=== PATIENT | female | born 1960 | race African-American/Black ===

== ENCOUNTER 2017-06-01 06:14 | Day surgery (SDC) | payer OTHER ==
[~2017-06-01] VITALS: Ht 160 cm; Wt 86.4 kg
[~2017-06-01 06:14] MED LIST: ACET500C4 PO; ALBU8.5H8 IH; BUDE10.2 IH; BUPR150SR PO; CHL25 PO; FAMO20 PO; FLUT16H NASAL; GABA-533 PO; HYDR200T4 PO; IPRA4AER IH; LOSA50TA37 PO; MELO-107 PO; MONT10TA21 PO; OMEP20 PO; PROME5L PO; SODIUM CHLORIDE 0.9% 1,000 ML IV ONE
[2017-06-01] MEDS ORDERED: LIDOCAINE HCL 2% 5 ML JELLY TP ONE (06:15)
[2017-06-01] MEDS ORDERED: LIDOCAINE HCL 4% 50 ML SOLUTION TP ONE (06:15)
[2017-06-01] MEDS ORDERED: ALBUTEROL SULFATE 2.5 MG/0.5 ML NEB SOLUTION NEB ONE (06:15)
[2017-06-01] MEDS ORDERED: SODIUM CHLORIDE 0.9% 1,000 ML IV ONE (06:30)
[2017-06-01] MEDS ORDERED: FentaNYL CITRATE-PF 100 MCG/2 ML VIAL ONE (07:45)
[2017-06-01] MEDS ORDERED: MIDAZOLAM HCL 2 MG/2 ML VIAL ONE (07:45)
[2017-06-01] MEDS ORDERED: MethylPREDNISolone SOD SUCC 125 MG/2 ML VIAL IVP ONE (09:00)
[2017-06-01] MEDS ORDERED: MethylPREDNISolone SOD SUCC 125 MG/2 ML VIAL ONE (09:09)
[2017-06-01] MEDS ORDERED: OXYGEN THERAPY IH SCH (20:00)
== END 2017-06-01 10:20 | disposition home or self-care (01) ==
LOC: SURGERY 06:14
PROVIDERS: ATTEND Internal Medicine Critical Care Medicine
DX: J38.4 Edema of larynx (principal); B37.0 Candidal stomatitis; I10 Essential (primary) hypertension; M19.90 Unspecified osteoarthritis, unspecified site; E78.00 Pure hypercholesterolemia, unspecified; J44.9 Chronic obstructive pulmonary disease, unspecified; M06.9 Rheumatoid arthritis, unspecified; F32.9 Major depressive disorder, single episode, unspecified; Z98.890 Other specified postprocedural states; Z90.711 Acquired absence of uterus with remaining cervical stump; Z87.891 Personal history of nicotine dependence
CPT/HCPCS: 31623; 31624; 71010; 87015 ×2; 87070; 87101; 87205; 87220; 88108; 94640; J2250; J2930; J3010; J7030

== ENCOUNTER 2018-10-16 06:08 | Day surgery (SDC) | payer OTHER ==
[~2018-10-16] VITALS: Ht 160 cm; Wt 95.5 kg
[~2018-10-16 06:08] MED LIST changes: -CHL25 PO; -LOSA50TA37 PO; +LOSA50TA64 PO; +PROM6.2522 PO; -PROME5L PO
[2018-10-16] MEDS ORDERED: BENZOCAINE 20% 50 MCG/SPRAY 57 GM TP ONE (06:09)
[2018-10-16] MEDS ORDERED: EPINEPHrine 1:1,000 [1 MG/ML] AMP IM ONE (06:09)
[2018-10-16] MEDS ORDERED: ALBUTEROL SULFATE 2.5 MG/0.5 ML NEB SOLUTION NEB ONE (06:09)
[2018-10-16] MEDS ORDERED: LIDOCAINE 4% 50 ML SOLUTION TP ONE (06:09)
[2018-10-16] MEDS ORDERED: LIDOCAINE 2% 30 ML JELLY TP ONE (06:09)
[2018-10-16] MEDS ORDERED: SODIUM CHLORIDE 0.9% 1,000 ML IV ONE (06:30)
[2018-10-16] MEDS ORDERED: FentaNYL CITRATE-PF 100 MCG/2 ML VIAL ONE (07:36)
[2018-10-16] MEDS ORDERED: MIDAZOLAM HCL 2 MG/2 ML VIAL ONE (07:36)
[2018-10-16] MEDS ORDERED: MethylPREDNISolone SOD SUCC 125 MG/2 ML VIAL ONE (08:51)
[2018-10-16] MEDS ORDERED: MethylPREDNISolone SOD SUCC 125 MG/2 ML VIAL IVP ONE (09:00)
[2018-10-16] MEDS ORDERED: OXYGEN THERAPY IH SCH (20:00)
== END 2018-10-16 10:25 | disposition home or self-care (01) ==
LOC: SURGERY 06:08
PROVIDERS: ATTEND Internal Medicine Critical Care Medicine
DX: J38.4 Edema of larynx (principal); B37.0 Candidal stomatitis; I10 Essential (primary) hypertension; F17.210 Nicotine dependence, cigarettes, uncomplicated; F32.9 Major depressive disorder, single episode, unspecified; M19.90 Unspecified osteoarthritis, unspecified site; J43.9 Emphysema, unspecified; Z98.890 Other specified postprocedural states
CPT/HCPCS: 31623; 31624; 71045; 87015; 87070; 87101; 87205; 87206; 87220; 88108; 88312; J0171; J2250; J2930; J3010; J7030